=== PATIENT | female | born 1945 | race Caucasian/White ===

== ENCOUNTER 2017-09-23 13:05 | Outpatient (CLI) | payer MEDICARE, OTHER | END 2017-09-23 13:06 | disposition home or self-care (01) | LOC: BICMRI 13:05 | PROVIDERS: ATTEND Anesthesiology Pain Medicine | DX: M48.02 Spinal stenosis, cervical region (principal); M99.71 Connective tissue and disc stenosis of intervertebral foramina of cervical region | CPT/HCPCS: 72141 ==

== ENCOUNTER 2017-11-27 05:35 | Day surgery (SDC) | payer MEDICARE ==
[2017-11-26 13:35] VITALS: BMI 41.1
[2017-11-27 06:28] LABS: #Basophils 0.1 thou/uL (0.0-0.2); #Eosinphils 0.7 thou/uL (0.0-0.7); #Lymphocytes 3.2 thou/uL (1.20-3.40); #Monocytes 0.9 thou/uL (0.11-0.59); #Neutrophils 7.7 thou/uL (1.40-6.50); %Basophils 1.1 % (0.0-1.0); %Eosinophils 5.3 % (0.0-10.0); %Lymphocytes 25.6 % (21.0-51.0); %Monocytes 7.1 % (0.0-10.0); %Neutrophils 60.9 % (42.0-75.0); Hemoglobin 12.5 g/dL (12.0-16.0); Mean Corpuscular HGB CONC 33.9 g/dL (32.0-36.0); Mean Corpuscular Hemoglobin 27.6 pg (27.0-31.0); Mean Corpuscular Volume 81.3 fl (81.0-99.0); Mean Platelet Volume 7.4 fL (7.4-10.4); Platelet Count 261 thou/uL (130-400); RBC Distribution Width 13.3 % (11.5-14.5); Red Blood Cell (RBC) Count 4.54 mill/uL (4.20-5.40); White Blood Cell (WBC) Count 12.7 thou/uL (4.8-10.8)
[2017-11-27] MEDS ORDERED: Bupivacaine HCl 0.5%/Epinephrine 1:200,000/PF 30 ml Vial ONE (06:31)
[2017-11-27] MEDS ORDERED: Thrombin 5000 UNITS/5 ML VIAL ONE (06:31)
[2017-11-27 06:37] LABS: Anion Gap 14 mmol/L (10-20); BUN (Urea Nitrogen) 24 mg/dL (9.8-20.1); Calc. Creatinine Clearance 74 mL/min (70-130); Calcium 9.5 mg/dL (7.8-10.44); Carbon Dioxide 26 mmol/L (23-31); Chloride 102 mmol/L (98-107); Estimated GFR-MDRD 46; Glucose 117 mg/dL (83-110); Potassium 4.4 mmol/L (3.5-5.1); Sodium 138 mmol/L (136-145)
[2017-11-27] MEDS ORDERED: Levofloxacin 500 mg/D5W 100 ml Premix Bag ONE (06:53)
[2017-11-27] MEDS ORDERED: Clindamycin/D5W 900 mg/50 ml Premix Bag ONE (06:53)
[2017-11-27] MEDS ORDERED: HYDROmorphone 0.5 MG/0.5 ML SYRINGE ONE (08:14)
--- NOTE | 2017-11-27 08:42 | OP ---
DATE OF PROCEDURE: 11/27/2017 SURGEON: Dr. Chris Dimas SPORTS AGENT: Jone Rios PA-C. INDICATION: Pain. DIAGNOSIS: Cervical radiculopathy. PROCEDURE: Anterior cervical discectomy and fusion, C5-6. ANESTHESIA: General. TECHNIQUE: The patient was brought into the operating room and placed under general anesthesia. She was placed on the table in a supine position. A transverse incision was planned over the lateral as pect of the neck on the right. After prepping and draping and after an appropriate operative pause, the incision was created. The underlying platysma muscles identified and incised. A blunt tissue pl ane anterior to the sternocleidomastoid muscle was used to gain access to the prevertebral space. Af ter identifying the appropriate level with C-arm fluoroscopy, an annulotomy was performed and disk ma terial as well as anterior and posterior osteophytes were removed under distraction. After complete decompression, a 6 mm lordotic PEEK cage packed with allograft and autograft material was placed with in the interbody space. An anterior cervical plate was then fashioned in the front of the spine and secured with a total of 4 fixed screws. Midline and lateral structures were inspected and found to b e free from significant trauma. The wound was irrigated. Hemostasis was maintained throughout. The wound was then closed in anatomic layers and a pressure dressing was applied. There were no known p rocedural complications.
--- NOTE | 2017-11-27 09:29 | HP ---
HISTORY OF PRESENT ILLNESS: Ms. Ray is a 72-year-old woman who is known to us for prior evaluatio n and surgery for lumbar decompression, who presents now for increasing cervical neck symptoms for th e last 1.5 years. Additionally, right upper extremity of C6 radiculopathy in the setting of an MRI performed at [facility] reveals multilevel foraminal stenosis notably at C5-C6 bilate rally that would fit her symptoms well. She has been managing with epidural steroid injections with Dr. Maza, which initially helped a great deal, but 2 weeks ago, she was unable to tolerate the procedure itself due to pain. PAST MEDICAL HISTORY: Significant for hypertension, enlarged heart, kidney stones, arthritis. MEDICATIONS: Simvastatin, benazepril, hydrochlorothiazide, amlodipine, potassium, oxybutynin. PAST SURGICAL HISTORY: Hysterectomy, gastric stapling, cardiac cath, . PHYSICAL EXAMINATION: GENERAL: Patient is alert and oriented x3. NEURO: Gait is normal, no ataxia. EXTREMITIES: Upper extremity motor exam reveals full strength bilaterally in all muscle groups of th e upper extremities. She has negative Tinel's and negative Spurling's bilaterally. ASSESSMENT: Cervical radiculopathy. PLAN: Dr. Dimas met with the patient, reviewed imaging, and ultimately advocated for C5-C6 ACDF. We explained to the patient the risks, benefits, and alternatives to the procedure. The patient expres sed understanding and would like to move forward with surgery as discussed. I do believe the patient is mentally competent and capable of making medical decisions for herself and we will move forward w ith surgery as planned. This is Eddie Rios PA-C dictating for Dr. Dimas.
[2017-11-27] MEDS ORDERED: HYDROcodone/Acetaminophen 5/325 mg Tablet ONE (09:38)
[2017-11-27] MEDS ORDERED: Dexamethasone 20 MG/5 ML VIAL ONE (12:36)
[2017-11-27] MEDS ORDERED: Propofol 200 MG/20 ML VIAL ONE (12:36)
[2017-11-27] MEDS ORDERED: Lidocaine 1% PF 5 ML VIAL ONE (12:36)
[2017-11-27] MEDS ORDERED: Glycopyrrolate 0.2 MG/ML 5 ML SYRINGE ONE (12:36)
[2017-11-27] MEDS ORDERED: Ondansetron HCl/PF 4 MG/2 ML Vial ONE (12:36)
== END 2017-11-27 10:05 | disposition home or self-care (01) ==
LOC: SDC 05:35
PROVIDERS: ATTEND Neurological Surgery
PROC: 0RG24A0 Fusion of 2 or more Cervical Vertebral Joints with Interbody Fusion Device, Anterior Approach, Anterior Column, Percutaneous Endoscopic Approach (ICD-10-PCS; principal; 2017-11-27)
DX: M54.12 Radiculopathy, cervical region (principal); I10 Essential (primary) hypertension; M19.90 Unspecified osteoarthritis, unspecified site; I51.7 Cardiomegaly; Z88.0 Allergy status to penicillin; Z98.890 Other specified postprocedural states
CPT/HCPCS: 20930; 20936; 22551; 22853; 76001; 80048; 85025; 93005; C1713; C1776; 36415; 93010; J0131; J0670; J1170; J1956; J3490

== ENCOUNTER 2018-01-09 11:07 | Outpatient (CLI) | payer MEDICARE ==
--- NOTE | 2018-01-09 12:07 | RAD ---
FOUR VIEWS CERVICAL SPINE: HISTORY: Cervical fusion. Cervical radiculopathy. COMPARISON: None. FINDINGS: The prevertebral soft tissues cannot be adequately assessed as they are excluded on the lateral proje ction. There is severe loss of disk space height at C4-C5. There is moderate to severe loss of disk space height at C6-C7. Anterior fusion plate with vertebral body screws at C5-C6. No perihardware lucency. There is a prosthesis at C5-C6. Predental space is normal. The odontoid process is limited in evaluation on the open-mouth projection. Lateral masses of C1 and C2 articulate appropriate. On the AP projection, there are degenerative changes in the facets. There is no obvious malalignment . Cervicomedullary junction is unremarkable. IMPRESSION: 1. Cervical fusion changes as above. 2. Significant degenerative disk disease at C4-C5 and C6-C7. POS: JAM
== END 2018-01-09 11:08 | disposition home or self-care (01) ==
LOC: TBSIIMAG 11:07
PROVIDERS: ATTEND Neurological Surgery
DX: M50.121 Cervical disc disorder at C4-C5 level with radiculopathy (principal); Z98.1 Arthrodesis status
CPT/HCPCS: 72040

== ENCOUNTER 2018-02-28 13:18 | Outpatient (CLI) | payer MEDICARE | END 2018-02-28 13:19 | disposition home or self-care (01) | LOC: BICMAMMO 13:18 | DX: Z12.31 Encounter for screening mammogram for malignant neoplasm of breast (principal); Z85.528 Personal history of other malignant neoplasm of kidney | CPT/HCPCS: 77063; 77067 ==

== ENCOUNTER 2019-04-01 08:20 | Outpatient (CLI) | payer MEDICARE ==
--- NOTE | 2019-04-01 09:50 | CT ---
CT ABDOMEN WITH CONTRAST CT PELVIS WITH CONTRAST: DATE: 04/01/2019 HISTORY: 74 year old female with lower abdominal pain and abdominal swelling. History of partial left renal saez rgery. COMPARISON: Noncontrast CT of 09/29/2012. TECHNIQUE: IV injection of iodinated contrast media: administered. Oral contrast media:Administered FINDINGS: The previously demonstrated right ureteral stent is no longer present. Previously, there was an appro ximately 8 mm calculus lodged at the right UPJ. Now, that calculus has grown to 17 x 12 x 15 mm, lodged at the right UPJ. There has been interval worsening of the right hydronephrosis, now severe, w ith ballooning of all calyces. The right enhancing renal cortex is diffusely very thin. However, there is no right perirenal edema/fat stranding. In the contralateral left kidney, there is a new finding of a 5 x 3 x 6 mm calculus in a lower pole c eryn. No left-sided hydronephrosis. Left renal parenchyma appears normal, except for a small defect at the left renal upper pole. Previously demonstrated hematoma lateral to the left kidney is no longe r present. Urinary bladder is decompressed. No bladder calculus. Absent uterus. Large number of diverticula throughout sigmoid colon without evidence of diverticulitis. No abdominal aortic aneurysm. No bowel dilation. Cecum is located near midline in upper abdomen. Appendix not identified. Liver, pancreas, adrenals, and spleen, demonstrate no major pathology. Postsurgical mendes es at fundus and cardia of stomach. No ascites or pneumoperitoneum. No pericholecystic edema. IMPRESSION: 1. Large calculus chronically lodged at right ureteropelvic junction, causing severe, chronic obstruc tive uropathy: Severe right hydronephrosis. Severely thinned right renal parenchyma. 2. Much smaller left renal lower pole calculus. 3. Status post hysterectomy, gastric fundoplication, and partial resection at left renal upper pole. 4. No acute findings.
== END 2019-04-01 08:21 | disposition home or self-care (01) ==
LOC: BICCT 08:20
PROVIDERS: ATTEND Student in an Organized Health Care Education/Training Program
DX: R19.07 Generalized intra-abdominal and pelvic swelling, mass and lump (principal); N13.2 Hydronephrosis with renal and ureteral calculous obstruction; Z90.710 Acquired absence of both cervix and uterus
CPT/HCPCS: 74177; 82565

== ENCOUNTER 2022-01-18 13:31 | Outpatient (CLI) | payer MEDICARE | END 2022-01-18 13:32 | disposition home or self-care (01) | LOC: BICMAMMO 13:31 | PROVIDERS: ATTEND Internal Medicine | DX: Z12.31 Encounter for screening mammogram for malignant neoplasm of breast (principal); Z85.528 Personal history of other malignant neoplasm of kidney; Z85.41 Personal history of malignant neoplasm of cervix uteri | CPT/HCPCS: 77063; 77067 ==

== ENCOUNTER 2022-04-15 12:03 | Inpatient (IN) | payer MEDICARE ==
[2022-04-15] MEDS ORDERED: Ondansetron PF 4 MG/2 ML Vial ONE (12:33)
[2022-04-15] MEDS ORDERED: Morphine 4 MG/ML VIAL ONE ×2 (12:33→14:50)
[2022-04-15 12:58] LABS: #Eosinphils 0.1 thou/uL (0.0-0.7); #Lymphocytes 1.4 thou/uL (1.20-3.40); #Neutrophils 13.6 thou/uL (1.40-6.50); %Basophils 0.2 % (0.0-1.0); %Eosinophils 0.3 % (0.0-10.0); %Lymphocytes 8.8 % (21.0-51.0); %Monocytes 6.5 % (0.0-10.0); %Neutrophils 84.2 % (42.0-75.0); Hemoglobin 12.6 g/dL (12.0-16.0); Mean Corpuscular HGB CONC 33.5 g/dL (32.0-36.0); Mean Corpuscular Hemoglobin 28.7 pg (27.0-31.0); Mean Corpuscular Volume 85.7 fL (78.0-98.0); Mean Platelet Volume 7.7 fL (7.4-10.4); Platelet Count 222 thou/uL (130-400); RBC Distribution Width 12.4 % (11.5-14.5); Red Blood Cell (RBC) Count 4.39 mill/uL (4.20-5.40); White Blood Cell (WBC) Count 16.2 thou/uL (4.8-10.8)
[2022-04-15 13:22] LABS: ALT (SGPT) 14 U/L (8-55); AST (SGOT) 21 U/L (5-34); Albumin 4.2 g/dL (3.4-4.8); Alkaline Phosphatase 46 U/L (40-110); Anion Gap 18 mmol/L (10-20); BUN (Urea Nitrogen) 45 mg/dL (9.8-20.1); Bilirubin, Total 1.3 mg/dL (0.2-1.2); Calc. Creatinine Clearance 0 mL/min (70-130); Calcium 9.8 mg/dL (7.8-10.44); Carbon Dioxide 26 mmol/L (23-31); Chloride 92 mmol/L (98-107); Estimated GFR 32; Globulin 3.1 g/dL (2.4-3.5); Glucose 125 mg/dL (83-110); Potassium 3.9 mmol/L (3.5-5.1); Protein, Total 7.3 g/dL (5.8-8.1); Sodium 132 mmol/L (136-145)
[2022-04-15 13:53] LABS: Bacteria/HPF 4+ HPF (None Seen); Bilirubin Negative (Negative); Blood, Urine 3+ (Negative); Clarity Extra Turbid (Clear); Glucose, Urine (Dipstick) Normal (Negative); Ketone, Urine Negative (Negative); Leukocyte 500 Leu/uL (Negative); Nitrite Negative (Negative); Protein, Urine (Dipstick) 30 mg/dL (Neg-Trace); Specific Gravity, Urine 1.011 (1.002-1.036); Squamous Epithelial None Seen HPF (0-3); Urobilinogen Normal mg/dL (Less than 2); WBC/HPF Greater than 50 HPF (0-3); pH, Urine 5.5 (5.0-9.0)
[2022-04-15] MEDS ORDERED: cefTRIAXone\\ROCEPHIN 1 GM VIAL ONE (14:33)
[2022-04-15] MEDS ORDERED: Acetaminophen 325 MG TAB PO PRN (15:09)
[2022-04-15] MEDS ORDERED: Ondansetron PF 4 MG/2 ML Vial IVP PRN (15:09)
[2022-04-15 16:34] LABS: SARS-CoV-2 NAA Rapid Test Not Detected (NotDetected)
[2022-04-15 16:56] VITALS: BMI 36.3
[2022-04-15] MEDS: Sodium Chloride 0.9% 1,000 ML IV SCH (17:17)
[2022-04-15] MEDS ORDERED: Enoxaparin Sodium 40 MG/0.4 ML SYRINGE SC SCH (17:30)
[2022-04-15] MEDS: HYDROcodone/Acetaminophen 5/325 mg Tablet PO PRN (20:33)
[2022-04-15] MEDS: Famotidine/PF 20 mg/2ml Vial SLOW IVP SCH (20:34)
[2022-04-16] MEDS: Sodium Chloride 0.9% 1,000 ML IV SCH ×3 (05:17→20:08)
[2022-04-16] MEDS: HYDROcodone/Acetaminophen 5/325 mg Tablet PO PRN ×3 (05:17→20:46)
[2022-04-16 06:16] LABS: #Basophils 0.1 thou/uL (0.0-0.2); #Eosinphils 0.3 thou/uL (0.0-0.7); #Lymphocytes 2.2 thou/uL (1.20-3.40); #Monocytes 0.8 thou/uL (0.11-0.59); #Neutrophils 7.1 thou/uL (1.40-6.50); %Basophils 0.6 % (0.0-1.0); %Eosinophils 2.5 % (0.0-10.0); %Lymphocytes 21.1 % (21.0-51.0); %Monocytes 7.9 % (0.0-10.0); Mean Corpuscular HGB CONC 34.9 g/dL (32.0-36.0); Mean Corpuscular Hemoglobin 30.6 pg (27.0-31.0); Mean Corpuscular Volume 87.8 fL (78.0-98.0); Mean Platelet Volume 7.8 fL (7.4-10.4); Platelet Count 183 thou/uL (130-400); RBC Distribution Width 12.6 % (11.5-14.5); Red Blood Cell (RBC) Count 3.59 mill/uL (4.20-5.40); White Blood Cell (WBC) Count 10.4 thou/uL (4.8-10.8)
[2022-04-16 06:37] LABS: Anion Gap 14 mmol/L (10-20); BUN (Urea Nitrogen) 44 mg/dL (9.8-20.1); Calc. Creatinine Clearance 35 mL/min (70-130); Calcium 8.5 mg/dL (7.8-10.44); Carbon Dioxide 27 mmol/L (23-31); Chloride 98 mmol/L (98-107); Estimated GFR 25; Glucose 94 mg/dL (83-110); Potassium 4.2 mmol/L (3.5-5.1); Sodium 135 mmol/L (136-145)
[2022-04-16] MEDS ORDERED: Enoxaparin Sodium 40 MG/0.4 ML SYRINGE SC SCH (09:00)
[2022-04-16] MEDS ORDERED: Enoxaparin Sodium 30 MG/0.3 ML SYRINGE SC SCH (09:15)
[2022-04-16] MEDS ORDERED: Iopamidol 15 ML ONE (14:11)
[2022-04-16] MEDS ORDERED: Fentanyl 100 MCG/2 ML VIAL ONE (15:03)
[2022-04-16] MEDS ORDERED: Levofloxacin 500 mg/D5W 100 ml Premix Bag ONE (15:04)
[2022-04-16] MEDS ORDERED: ePHEDrine 50 MG/ML VIAL ONE (15:10)
[2022-04-16] MEDS ORDERED: Ondansetron PF 4 MG/2 ML Vial ONE (15:10)
[2022-04-16] MEDS ORDERED: Dexamethasone 20 MG/5 ML VIAL ONE (15:10)
[2022-04-16] MEDS ORDERED: Lidocaine 1% PF 5 ML VIAL ONE (15:10)
[2022-04-16] MEDS ORDERED: PROPOFOL 200 MG/20 ML VIAL ONE (15:10)
[2022-04-16] MEDS ORDERED: B & O ONE (15:54)
[2022-04-16] MEDS: Famotidine/PF 20 mg/2ml Vial SLOW IVP SCH (20:46)
[2022-04-17] MEDS: Sodium Chloride 0.9% 1,000 ML IV SCH (03:58)
[2022-04-17 05:45] VITALS: TEMP 97.9
[2022-04-17 06:07] LABS: Anion Gap 15 mmol/L (10-20); BUN (Urea Nitrogen) 26 mg/dL (9.8-20.1); Calc. Creatinine Clearance 57 mL/min (70-130); Calcium 8.5 mg/dL (7.8-10.44); Carbon Dioxide 24 mmol/L (23-31); Chloride 104 mmol/L (98-107); Estimated GFR 45; Glucose 118 mg/dL (83-110); Sodium 139 mmol/L (136-145)
[2022-04-17] MEDS ORDERED: Enoxaparin Sodium 30 MG/0.3 ML SYRINGE SC SCH ×2 (09:00)
[2022-04-17] MEDS: HYDROcodone/Acetaminophen 5/325 mg Tablet PO PRN (09:59)
[2022-04-17 11:21] VITALS: BP 146/72
== END 2022-04-17 11:30 | disposition home or self-care (01) | DRG 854 ==
LOC: ERS 12:03 → SJJU 16:35
PROVIDERS: ADMIT Internal Medicine; ATTEND Internal Medicine
PROC: 3E03329 Introduction of Other Anti-infective into Peripheral Vein, Percutaneous Approach (ICD-10-PCS; 2022-04-15)
PROC: 0T788DZ Dilation of Bilateral Ureters with Intraluminal Device, Via Natural or Artificial Opening Endoscopic (ICD-10-PCS; principal; 2022-04-16)
PROC: BT141ZZ Fluoroscopy of Kidneys, Ureters and Bladder using Low Osmolar Contrast (ICD-10-PCS; 2022-04-16)
PROC: 0TCB8ZZ Extirpation of Matter from Bladder, Via Natural or Artificial Opening Endoscopic (ICD-10-PCS; 2022-04-16)
DX: A41.51 Sepsis due to Escherichia coli [E. coli] (principal); N13.6 Pyonephrosis; Z20.822 Contact with and (suspected) exposure to COVID-19; I10 Essential (primary) hypertension; E66.01 Morbid (severe) obesity due to excess calories; N21.0 Calculus in bladder; Z87.442 Personal history of urinary calculi; Z90.5 Acquired absence of kidney; Z85.528 Personal history of other malignant neoplasm of kidney; Z88.0 Allergy status to penicillin; Z79.899 Other long term (current) drug therapy; Z79.890 Hormone replacement therapy; Z98.1 Arthrodesis status; Z90.710 Acquired absence of both cervix and uterus; Z68.36 Body mass index [BMI] 36.0-36.9, adult
CPT/HCPCS: 36415; 36416; 51702; 74176; 74420; 80048; 80053; 81003; 81015; 82365; 83605; 85025; 87040; 87077; 87086; 87186; 88300; 94760; 96374; 96375; 96376; C2617; J0696; J1100; J1650; J1956; J2270; J2405; J2704; J3010; J3490; J7050; Q9967; S0028; U0002

== ENCOUNTER 2022-05-18 10:55 | Outpatient (CLI) | payer MEDICARE | END 2022-05-18 10:56 | disposition home or self-care (01) | LOC: CT 10:55 | PROVIDERS: ATTEND Urology | DX: N20.0 Calculus of kidney (principal); K57.30 Diverticulosis of large intestine without perforation or abscess without bleeding; N26.1 Atrophy of kidney (terminal); Z96.0 Presence of urogenital implants | CPT/HCPCS: 74176 ==